=== PATIENT | female | born 1950 | race Two or more races ===

== ENCOUNTER 2019-05-31 08:51 | Day surgery (SDC) | payer OTHER | END 2019-05-31 15:12 | disposition home or self-care (01) | LOC: AMB-ENDOS 08:51 → EDBD 14:15 → AMB-ENDOS 14:15 | DX: K64.8 Other hemorrhoids (principal); K64.1 Second degree hemorrhoids; Z12.11 Encounter for screening for malignant neoplasm of colon ==